=== PATIENT | female | born 1955 | race Caucasian/White ===

== ENCOUNTER → 2018-01-13 | Outpatient (CLI) | payer BC ==
[~2018-01-13] MED LIST: ACET-1718 PO; ATOR20TA65 PO; CHOL20007 PO; CYCL10TA29 PO; GABA-549 PO; HYDR-4225 PO; LEVO75TA73 PO; LOR1; MAGN1POW16 MC; MELO-207 PO; TRAZ100T31 PO; UBID100C48 PO
--- NOTE | 2018-01-13 16:50 | RADIOLOGY IMAGING REPORT ---
[place] [facility] [place] NAME: Yennifer Godinez : 1955 MR: [id number] V: [id number] EXAM DATE: ORDERING PHYSICIAN: CECE KNOX TECHNOLOGIST: Location: [facility] Patient: Yennifer Godinez : 1955 Visit/Account:[id number] Date of Sevice: 01/13/2018 KNEE 3 VIEWS BILATERAL Indication: Chronic knee pain Comparison: None available Findings: Right knee: There is mild tricompartmental degenerative osteoarthritis present. Mild spurring of the tibial spin es is noted. Small osteophytes noted off the lateral femoral condyle. No joint effusion is identifi ed. Left knee: There is moderate joint space narrowing involving the medial and patellofemoral joint space. Moderat e spurring of the tibial spines is noted. The lateral compartment appears well preserved. No joint effusion is identified. Impression: 1. Bilateral degenerative osteoarthritis as described, no acute abnormalities noted Report Dictated By: Mario Alberto Olson at 01/13/2018 4:44 PM Report E-Signed By: Mario Alberto Olson at 01/13/2018 4:47 PM WSN:[id number]
== END ==
LOC: RAD 15:40
PROVIDERS: ATTEND Family Medicine
DX: M17.0 Bilateral primary osteoarthritis of knee (principal)

== ENCOUNTER → 2018-07-11 | Outpatient (CLI) | payer MEDICARE, OTHER ==
--- NOTE | 2018-07-11 14:04 | RADIOLOGY IMAGING REPORT ---
F[place] [facility] [place]IENT NAME: Yennifer Godinez : 1955 MR: [id number] V: [id number] EXAM DATE: ORDERING PHYSICIAN: EUGENE CLEMENTS TECHNOLOGIST: Location: [facility] [place] Patient: Yennifer Godinez : 1955 Visit/Account:[id number] Date of Sevice: 07/11/2018 Right lower extremity venous Doppler duplex ultrasound scan. HISTORY: Right popliteal fossa pain. COMPARISON: None. A color flow Doppler duplex ultrasound examination with spectral analysis was performed on the lower extremity. The common femoral vein, superficial femoral vein, and popliteal vein are normal. These ve ssels compress and augment normally. The upper portions of the trifurcation veins are unremarkable. P ortions of the deep veins of the calf are obscured. No intraluminal filling defects are identified to suggest acute thrombus in the deep venous system. No abnormal fluid collections. A complex fluid collection measuring 3.6 cm in length is present in th e right popliteal soft tissues. A venous reflux study was not performed at this time. Note that Doppler ultrasound is somewhat insensitive below the knee. IMPRESSION: Negative for acute deep vein thrombosis. 3.6 cm complex right German's cyst. Report Dictated By: Enmanuel Francis MD at 07/11/2018 1:58 PM Report E-Signed By: Enmanuel Francis MD at 07/11/2018 2:02 PM WSN:[id number]
== END ==
LOC: US 12:59
PROVIDERS: ATTEND Family Medicine
DX: M71.21 Synovial cyst of popliteal space [Baker], right knee (principal)

== ENCOUNTER 2018-10-01 01:06 | Day surgery (SDC) | payer MEDICARE, OTHER ==
[~2018-10-01] VITALS: Ht 160 cm; Wt 64.9 kg
[~2018-10-01 01:06] MED LIST changes: +ACET-3017 PO; +ASCO-480 PO; +CHOL10005 PO; +DIPH-911 PO; +IBUP600T22 PO; -LOR1; +LOR1 PO; +MAGN125C PO; +MELA1TAB23 PO; +PYRI50TA11 PO; +VITA400T2 PO; +[UNRECOGNIZED DRUG - CODE] PO; +[UNRECOGNIZED DRUG - OTHER] PO; +[UNRECOGNIZED DRUG - OTHER] PO
[2018-10-01] MEDS: NORMOSOL R SOLN(*) 1000 ML BAG 1,000 ML IV PRN ×2 (07:50→08:59)
[2018-10-01] MEDS ORDERED: LIDOCAINE MPF 1% 5 ML VIAL ONE (08:00)
[2018-10-01] MEDS ORDERED: PROPOFOL EMUL(*) 10MG/ML 20 ML 60 ML ONE (08:00)
[2018-10-01 08:24] VITALS: BP 116/86
[2018-10-01] MEDS ORDERED: LIDOCAINE/SOD BICARB 8.4% SYR ID ONE (08:50)
[2018-10-01] MEDS ORDERED: GLYCOPYRROLATE 0.2MG/ML 1 ML INJ ONE (08:53)
[2018-10-01] MEDS ORDERED: GLYCOPYRROLATE 0.2MG/ML 1 ML INJ IVP ONE (08:56)
[2018-10-01 09:30] VITALS: BP 114/74
--- NOTE | 2018-10-01 09:40 | NUR ---
0930 PT ARRIVED TO [place] VIA CART, SAFETY MAINTAINED, SBAR FROM [facility]oy PAINTER RN AND DR. KNAPP, VSS, PT L LAT, SNORING LOUDLY, IN WR, ASSESSMENT UNREMAKABLE, DIFFICULT TO HEAR LUNG SOUNDS, SATTING EXTREMELY WELL DESPITE SNORING, BEGAN DECREASING O2
--- NOTE | 2018-10-01 09:44 | Short(Outpt) Discharge Summary ---
Discharge Summary Reason for Hosp/Final Diag: (1) Diarrhea Hospital Course & Plan: pt presented for egd and colonoscopy. she tolerated the procedure well and will be discharged home when criteria met. Departure Discharge to: Home Discharge Instructions Home Meds Reported Medications Diphenhydramine Hcl (UNISOM) 50 Mg Capsule, 50 MG PO PRN for ANXIETY, CAPSULE 09/29/18 Cholecalciferol (Vitamin D3) (VITAMIN D3) 1,000 Unit Tablet, 125 MCG PO QDAY, TAB 09/29/18 Ascorbic Acid (VITAMIN C WITH ZECHARIAH HIPS) 1,000 Mg Tablet, 1000 MG PO BID 09/29/18 [Power Mushrooms] No Conflict Check, 2 TAB PO QDAY 09/29/18 Magnesium Citrate (Magnesium Citrate) 125 Mg Capsule, 400 MG PO TID 09/29/18 Vitamin E Acid Succinate (VITAMIN E) 400 Unit Tablet, 2 TAB PO QDAY 09/29/18 [Dophilus] No Conflict Check, 1 TAB PO QDAY 09/29/18 Pyridoxine Hcl (VITAMIN B-6) 50 Mg Tablet, 50 MG PO QDAY 09/29/18 [bio-zinc] No Conflict Check, 1 TAB PO QDAY 09/29/18 Ibuprofen (IBUPROFEN) 600 Mg Tablet, 1 TAB PO Q6H, TAB 09/23/18 Acetaminophen With Codeine # 3 (TYLENOL WITH CODEINE #3 TABLET) 1 Each Tablet, 1 EACH PO, TAB 09/23/18 Melatonin (MELATONIN) 1 Mg Tablet, 5 MG PO BID 09/23/18 Ubidecarenone (COQ-10) 100 Mg Capsule, 100 MG PO QDAY, CAPSULE 01/04/16 Lorazepam (LORAZEPAM) 1 Mg Tab, 2 MG PO PRN, TAB 01/04/16 Levothyroxine Sodium (LEVOTHYROXINE SODIUM) 75 Mcg Tablet, 75 MCG PO QDAY, TAB 08/06/15 Magnesium Malate (MAGNESIUM MALATE) 1 Gm Powder, 1 GM MC TID 08/06/15 Diet: Regular Activity: As Tolerated Special Instructions: we will call you in 10 days with results. SLOANE GUARDADO Oct 01, 2018 09:44
[2018-10-01 10:00] VITALS: BP 81/50
--- NOTE | 2018-10-01 10:06 | NUR ---
0945 PT'S TAYLOR TO BEDSIDE, PT STILL RESTING 0955 PT AWAKE, REQUESTING TEA, WOULD LIKE TO KEEP RESTING, O2 OFF, DOING WELL ON RA 1000 VSS, PT TOLERATING SIPS OF TEA, STILL RESTING IN BETWEEN QUESTIONS/SIPS
[2018-10-01 10:40] VITALS: BP_SYST 122; BP_SYST 123; BP_DIAS 110; BP_DIAS 97
[2018-10-01] MEDS ORDERED: fentaNYL CITR 100 MCG/2 ML AMP ONE (15:07)
[2018-10-01] MEDS ORDERED: MIDAZOLAM 2 MG/2 ML VIAL ONE (15:12)
== END 2018-10-01 11:04 | disposition home or self-care (01) ==
LOC: OR 01:06
PROVIDERS: ATTEND Surgery
DX: K63.5 Polyp of colon (principal); K57.30 Diverticulosis of large intestine without perforation or abscess without bleeding; R19.7 Diarrhea, unspecified
CPT/HCPCS: 00813; 43239; 45380; 87077; 88305; 88313; 88342; J2001; J2704; J2250; J3010; J3490

== ENCOUNTER → 2018-11-17 | Outpatient (CLI) | payer MEDICARE, OTHER ==
[~2018-11-17] MED LIST changes: +AMOX-362 PO; +METR-119 PO; +PANT40TA65 PO; +TETR500C2 PO
== END ==
LOC: LAB 14:39
PROVIDERS: ATTEND Surgery
DX: R19.7 Diarrhea, unspecified (principal); A04.8 Other specified bacterial intestinal infections
CPT/HCPCS: 83010

== ENCOUNTER → 2018-11-19 | Outpatient (CLI) | payer MEDICARE, OTHER ==
--- NOTE | 2018-11-19 13:46 | RADIOLOGY IMAGING REPORT ---
FACILITY: [facility] [place] PATIENT NAME: Yennifer Godinez : 1955 MR: [id number] V: [id number] EXAM DATE: ORDERING PHYSICIAN: CECE KNOX TECHNOLOGIST: Location: [facility] Patient: Yennifer Godinez : 1955 Visit/Account:[id number] Date of Sevice: 11/19/2018 PELVIC HISTORY: Uterine enlargement, history of Bartholin's gland cyst removed TECHNIQUE: Transvaginal and transabdominal ultrasound pelvis. COMPARISON: None FINDINGS: Uterus: ; 0.2 cm length x 2.1 cm AP x 3.6 cm transverse. Myometrium: There is a subserosal fibroid projecting along the posterior aspect of the uterine fundus measuring 2.2 x 1.9 x 1.9 cm. Endometrium: Unremarkable; double thickness 2.6 mm. Cervix: Grossly negative. Ovaries: Right - 1.2 x 1 x 1.7 cm not well seen Left - not seen Adnexa: Grossly unremarkable. Free pelvic fluid: None. IMPRESSION: 2.2 cm posterior subserosal fundal fibroid Ovaries not well seen Report Dictated By: Nany Cohen MD at 11/19/2018 1:35 PM Report E-Signed By: Nany Cohen MD at 11/19/2018 1:38 PM [id number]
== END ==
LOC: US 00:49
PROVIDERS: ATTEND Family Medicine
DX: D25.2 Subserosal leiomyoma of uterus (principal)
CPT/HCPCS: 76830; 76856